=== PATIENT | male | born 1970 | race Two or more races ===

== ENCOUNTER 2021-10-22 03:18 | Emergency (ER) | payer SELFPAY ==
[~2021-10-22] VITALS: Ht 177.8 cm; Wt 90.7 kg
--- NOTE | 2021-10-22 03:35 | NUR ---
[id number] C/O C/P AND PALPITATIONS S/P SNORTING COCAINE FOR FIRST TIME +ALCOHOL AT A CONSTITUTION PARTY. PT AWAKE AND ALERTX4 BREATHING UNLABORED AND TACHYCARDIC. PT CHANGED INTO GOWN AND PLACED ON [employer] AND PULSE OX. EMT AT BEDSIDE FOR EKG.
[2021-10-22] MEDS ORDERED: ONDANSETRON HCL/PF 4 MG/2 ML VIAL ONE (03:39)
[2021-10-22 03:57] LABS: BASOPHILS % (AUTO) 0.2 % (0.0-2.0); EOSINOPHILS % (AUTO) 0.4 % (0.0-6.0); HEMATOCRIT 46 % (39-51); HEMOGLOBIN 15.3 g/dL (13.5-17.5); LYMPHOCYTES # (AUTO) 3.2 K/uL (0.8-4.8); LYMPHOCYTES % (AUTO) 17.3 % (20.0-44.0); MEAN CORPUSCULAR HGB CONC 33 g/dl (31.0-36.0); MEAN CORPUSCULAR VOLUME 85 fL (80-96); MONOCYTES # (AUTO) 1.1 K/uL (0.1-1.30); MONOCYTES % (AUTO) 6.1 % (2.0-12.0); NEUTROPHILS # (AUTO) 13.9 K/uL (1.8-8.9); PLATELET COUNT (AUTO) 326 K/uL (150-450); RED BLOOD CELL COUNT(AUTO) 5.38 MIL/uL (4.5-6.0); WHITE BLOOD COUNT (AUTO) 18.3 K/uL (4.3-11.0)
[2021-10-22] MEDS ORDERED: ONDANSETRON HCL/PF 4 MG/2 ML VIAL IVP ONE (04:00)
--- NOTE | 2021-10-22 04:06 | NUR ---
XRAY AT BEDSIDE
[2021-10-22 04:19] LABS: CALCIUM, SERUM 9.3 mg/dL (8.5-10.1); CARBON DIOXIDE 22 mmol/L (21-32); CHLORIDE 100 mmol/L (98-107); CREATININE 0.8 mg/dL (0.6-1.3); GLUCOSE 88 mg/dL (74-106); POTASSIUM 3.3 mmol/L (3.5-5.1); SODIUM SERUM 136 mmol/L (136-145); UREA NITROGEN, BLOOD 10 mg/dL (7-18)
[2021-10-22 05:37] VITALS: BP 131/70
--- NOTE | 2021-10-22 05:37 | NUR ---
Patient discharged to home in stable condition. Written and verbal after care instructions given. Patient verbalizes understanding of instruction.
== END 2021-10-22 05:38 | disposition home or self-care (01) ==
LOC: ER 03:21
DX: R00.2 Palpitations (principal); F14.10 Cocaine abuse, uncomplicated; Z88.8 Allergy status to other drugs, medicaments and biological substances
CPT/HCPCS: 36415; 71045; 80048; 84484; 85025; 93005 ×2; 96374; 99285; J2405; J7030